=== PATIENT | male | born 1970 | race Asian ===

== ENCOUNTER 2019-08-24 20:34 | Emergency (ER) | payer BC ==
[2019-08-24] MEDS ORDERED: Lidocaine 2% EPI 1:200000 MPF* 10 ML VIAL INJ ONE (23:50)
[2019-08-24] MEDS ORDERED: Silver Nitrate/Potassium Nitr* 1 PAK (1 PAK PER PATIENT) TOPICAL ONE (23:52)
--- NOTE | 2019-08-25 00:41 | ED ---
Laceration/Wound HPI - HPI Summary HPI Summary: 49-year-old male presents with skin tear that is bleeding on his left buttocks. He states he was at the gym when the area was accidentally snagged on something. the area continues to bleed. He has no medical conditions. He placed a dressing on the area but it continues to bleed. He is not on any blood thinners. - History of Current Complaint Stated Complaint: BLEEDING WOUND ON BUTTOCKS PER PT Time Seen by Provider: 08/24/19 23:43 Pain Intensity: 5 - Allergy/Home Medications Allergies/Adverse Reactions: Allergies Allergy/AdvReac Type Severity Reaction Status Date / Time No Known Allergies Allergy Verified 08/24/19 20:41 PMH/Surg Hx/FS Hx/Imm Hx Endocrine/Hematology History: Denies: Hx Anticoagulant Therapy Cardiovascular History: Denies: Other Cardiovascular Problems/Disorders Respiratory History: Denies: Hx Asthma, Other Respiratory Problems/Disorders GI History: Denies: Other GI Disorders History: Denies: Other Problems/Disorders Musculoskeletal History: Denies: Other Musculoskeletal History Sensory History: Reports: Hx Contacts or Glasses - GLASSES Denies: Hx Hearing Aid Opthamlomology History: Reports: Hx Contacts or Glasses - GLASSES Neurological History: Denies: Other Neuro Impairments/Disorders Psychiatric History: Reports: Hx Depression - on meds - Surgical History Hx Anesthesia Reactions: No Infectious Disease History: No Infectious Disease History: Denies: Traveled Outside the [place] in Last 30 Days - Family History Known Family History: Positive: Non-Contributory - Social History Alcohol Use: Rare Substance Use Type: Reports: None Smoking Status (MU): Former Smoker Review of Systems Negative: Fever Negative: Chest Pain Negative: Shortness Of Breath Positive: Other - bleeding skin tear to left buttock All Other Systems Reviewed And Are Negative: Yes Physical Exam Triage Information Reviewed: Yes Vital Signs On Initial Exam: Initial Vitals Temp Pulse Resp BP Pulse Ox 97.0 F 84 16 125/77 96 08/24/19 20:39 08/24/19 20:39 08/24/19 20:39 08/24/19 20:39 08/24/19 20:39 Vital Signs Reviewed: Yes Appearance: Positive: Well-Appearing Skin: Positive: Warm, Dry Head/Face: Positive: Normal Head/Face Inspection Eyes: Positive: Normal, Conjunctiva Clear ENT: Positive: Pharynx normal Respiratory/Lung Sounds: Positive: Clear to Auscultation, Breath Sounds Present Cardiovascular: Positive: Normal, RRR Musculoskeletal: Positive: Normal Neurological: Positive: Normal Psychiatric: Positive: Normal Procedures - Sedation Patient Received Moderate/Deep Sedation with Procedure: No Diagnostics - Vital Signs Vital Signs Temp Pulse Resp BP Pulse Ox 08/24/19 23:20 98.2 F 75 16 115/79 97 08/24/19 20:39 97.0 F 84 16 125/77 96 - Laboratory Lab Statement: Any lab studies that have been ordered have been reviewed, and results considered in the medical decision making process. Laceration Repair Course/Dx - Course Course Of Treatment: 49-year-old male presents with skin tear that is bleeding on his left buttocks. He states he was at the gym when the area was accidentally snagged on something. the area continues to bleed. He has no medical conditions. He placed a dressing on the area but it continues to bleed. He is not on any blood thinners. On exam has bleeding skin tag. Apply lidocaine and epinephrine and cut skin tear as would not stop bleeding with cauterization. cauterized the area with electric cautery and silver nitrate . Area continues to bleed. Applied TXA and bleeding stopped. Applied a pressure dressing. told keep pressure dressing on area. Told to apply pressure bleeding if bleeding were to reoccur recur. Patient understands and agrees the plan. - Differential Dx Differental Diagnoses: Abrasion, Avulsion, Laceration - Clinical Impression Provider Diagnoses: Hemorrhage of skin lesion Discharge ED - Sign-Out/Discharge Documenting (check all that apply): Patient Departure - Discharge Plan Condition: Stable Disposition: HOME Referrals: Reilly Reyes MD [Primary Care Provider] - Additional Instructions: keep dressing on area for two day if bleed occurs apply pressure to area Return to ED if develop any new or worsening symptoms - Billing Disposition and Condition Condition: STABLE Disposition: Home
[2019-08-25] MEDS ORDERED: Silver Nitrate/Potassium Nitr* 1 PAK (1 PAK PER PATIENT) TOPICAL ONE (01:00)
[2019-08-25] MEDS ORDERED: Tranexamic Acid 1,000 MG/10 ML SDV TOPICAL ONE (01:03)
[2019-08-25 01:53] VITALS: BP 116/78
== END 2019-08-25 01:52 | disposition home or self-care (01) ==
LOC: ED 20:34
DX: S31.821A Laceration without foreign body of left buttock, initial encounter (principal); W45.8XXA Other foreign body or object entering through skin, initial encounter; W22.8XXA Striking against or struck by other objects, initial encounter; Y92.89 Other specified places as the place of occurrence of the external cause; Z87.891 Personal history of nicotine dependence
CPT/HCPCS: 99282; A9270-GY